=== PATIENT | female | born 1980 | race African-American/Black ===

== ENCOUNTER 2024-11-04 23:38 | Emergency (ER) | payer BC ==
[~2024-11-04] VITALS: Ht 165.1 cm; Wt 90.7 kg
[2024-11-05] MEDS: IV NS 0.9% 500 ML BAG IV ONE (01:50)
[2024-11-05 02:16] LABS: PLATELET COUNT (AUTO) 435 K/uL (150-450); RED BLOOD CELL COUNT(AUTO) 4.75 MIL/uL (4.0-5.2); RED CELL DISTRIBUTION WIDTH 15.8 % (11.5-15.0); WHITE BLOOD COUNT (AUTO) 14.6 K/uL (4.3-11.0)
[2024-11-05 02:29] LABS: CALCIUM, SERUM 9.5 mg/dL (8.5-10.1); CREATININE 1.0 mg/dL (0.6-1.3); SODIUM SERUM 133.0 mmol/L (136-145); UREA NITROGEN, BLOOD 26.0 mg/dL (7-18)
[2024-11-05 02:35] LABS: ASPARTATE AMINOTRANSFERASE 51.0 U/L (15-37); TOTAL PROTEIN, SERUM 9.2 g/dL (6.4-8.2)
[2024-11-05 03:52] LABS: APPEARANCE,URINE SLIGHTLY CLOUDY (CLEAR); BLOOD, URINE TRACE-INTA Ery/uL (NEGATIVE); LEUKOCYTE ESTERASE ,URINE NEGATIVE (NEGATIVE); NITRITE, URINE NEGATIVE (NEGATIVE); UGLUCOSE NEGATIVE (NEGATIVE)
[2024-11-05 03:58] LABS: ADD URINE CULTURE YES; COARSE GRANULAR CASTS,URINE Moderate /LPF (None Seen); SQUAMOUS EPITHELIAL CELL,UR Moderate /HPF (None Seen)
[2024-11-05] MEDS ORDERED: CEPH500C2 PO (04:04)
[2024-11-05] MEDS ORDERED: IBUP-1490 PO (04:04)
[2024-11-05 04:20] VITALS: BP 138/82; TEMP 98.8; O2SAT 99
== END 2024-11-05 04:20 | disposition home or self-care (01) ==
LOC: ER 23:43
DX: N39.0 Urinary tract infection, site not specified (principal); R18.8 Other ascites; R00.2 Palpitations
CPT/HCPCS: 99285; 74176; 96360; 71045; 93005; 85025; 80048; 87086; 83690; 80076; 81001; 36415; J7040